=== PATIENT | male | born 1950 | race Caucasian/White ===

== ENCOUNTER 2016-05-01 00:17 | Inpatient (IN) | payer OTHER ==
[~2016-05-01] VITALS: Ht 177.8 cm; Wt 81.1 kg
[2016-05-01] VITALS (8 sets, daily range): BP systolic 140–188; BP diastolic 67–98
[2016-05-01] MEDS ORDERED: FURO20 PO (00:39)
[2016-05-01] MEDS ORDERED: HYDR50 PO (00:39)
[2016-05-01] MEDS ORDERED: GLIP2.5ER PO (00:39)
[2016-05-01] MEDS ORDERED: LISI-662 PO (00:39)
[2016-05-01] MEDS ORDERED: TERA5 PO (00:39)
[2016-05-01] MEDS ORDERED: NIFE90TA38 PO (00:39)
[2016-05-01] MEDS ORDERED: CARV6 PO (00:39)
[2016-05-01 00:42] LABS: GLUCOSE COMMENT 1 Doctor Notified; GLUCOSE,POINT OF CARE 351 MG/DL (70-110)
[2016-05-01 01:32] LABS: BASOPHILS # (AUTO) 0.01 K/uL (0.00-0.20); BASOPHILS % (AUTO) 0.2 % (0.0-2.0); EOSINOPHILS # (AUTO) 0.03 K/uL (0.00-0.70); EOSINOPHILS % (AUTO) 0.37 % (1.0-6.0); HEMATOCRIT 37.3 % (41-53); HEMOGLOBIN 12.5 g/dL (13.5-17.5); LYMPHOCYTES # (AUTO) 0.9 K/uL (1.0-4.8); LYMPHOCYTES % (AUTO) 11.7 % (22.0-44.0); MEAN CORPUSCULAR HEMOGLOBIN 29.8 pg (26.0-34.0); MEAN CORPUSCULAR HGB CONC 33.6 G/dL (31.0-37.0); MEAN CORPUSCULAR VOLUME 89 fL (80-100); MONOCYTES # (AUTO) 0.2 K/uL (0.1-1.0); MONOCYTES % (AUTO) 3.2 % (2.0-9.0); NEUTROPHILS # (AUTO) 6.2 K/uL (1.8-7.7); NEUTROPHILS % (AUTO) 84.6 % (40.0-70.0); PLATELET COUNT (AUTO) 158 K/uL (150-450); RED CELL DISTRIBUTION WIDTH 13.4 % (11.5-14.5); WHITE BLOOD COUNT (AUTO) 7.3 K/uL (4.5-11.0)
[2016-05-01 01:41] LABS: INR 1.2 (0.9-1.1); PROTHROMBIN TIME 13.1 SEC (9.4-11.6)
[2016-05-01 01:46] LABS: ANION GAP 10 mmol/L (8-16); CALCIUM, TOTAL 9.1 mg/dL (8.8-10.5); CARBON DIOXIDE 25 mmol/L (22-29); CHLORIDE 108 mmol/L (98-107); CREATININE 2.41 mg/dL (0.60-1.30); GLOMERULAR FILTR. RATE CALC 27 mL/min (>60); POTASSIUM 4.7 mmol/L (3.5-5.1); SODIUM SERUM 143 mmol/L (136-145); UREA NITROGEN, BLOOD 42 mg/dL (7-18)
[2016-05-01 01:51] LABS: ALANINE AMINOTRANSFERASE 17 U/L (12-78); ALBUMIN 3.6 g/dL (3.4-5.0); ASPARTATE AMINOTRANSFERASE 10 U/L (15-37); BILIRUBIN,TOTAL 0.4 mg/dL (0.1-1.0); CREATINE KINASE, TOTAL 62 U/L (39-308); TOTAL PROTEIN, SERUM 7.5 g/dL (6.4-8.2)
[2016-05-01 01:53] LABS: B-TYPE NATRIURETIC PEPTIDE 327 pg/mL (0-100)
[2016-05-01] MEDS ORDERED: INSULIN REGULAR, HUMAN 100 UNITS/ML IVP ONE (02:30)
[2016-05-01] MEDS ORDERED: SODIUM CHLORIDE 0.9% 1,000 ML IV ONE ×2 (02:30→04:00)
[2016-05-01] MEDS ORDERED: ONDANSETRON HCL 4 MG/2 ML VIAL IVP ONE (02:30)
[2016-05-01] MEDS ORDERED: 0.9% SODIUM CHLORIDE 10 ML SYRINGE IVP PRN (04:00)
[2016-05-01] MEDS ORDERED: ONDANSETRON HCL 4 MG/2 ML VIAL IVP PRN (04:00)
[2016-05-01] MEDS ORDERED: ACETAMINOPHEN 325 MG TABLET PO PRN ×2 (04:00→11:15)
[2016-05-01] MEDS ORDERED: POTASSIUM CHL 20 MEQ/0.45% NS 1,000 ML IV ONE (04:00)
[2016-05-01 04:03] LABS: APPEARANCE,URINE CLEAR (CLEAR); GLUCOSE, URINE (UA) >=1000 mg/dL (NEGATIVE); KETONES,URINE NEGATIVE (NEGATIVE); LEUKOCYTE ESTERASE ,URINE NEGATIVE (NEGATIVE); OCCULT BLOOD,URINE NEGATIVE (NEGATIVE); PH,URINE 5.5 (5.0-8.0); PROTEIN,URINE SEE CONFIRM (NEGATIVE)
[2016-05-01 04:08] LABS: ADD UA MICROSCOPIC YES
[2016-05-01 04:16] LABS: GLUCOSE,POINT OF CARE 266 MG/DL (70-110)
[2016-05-01 04:24] LABS: RBC,URINE None Seen /HPF (0-2); WBC,URINE None Seen /HPF (0-5)
[2016-05-01] MEDS ORDERED: AmLODIPine BESYLATE 5 MG TABLET PO ONE (04:30)
[2016-05-01] MEDS ORDERED: CloNIDine HCL 0.1 MG TABLET PO PRN (05:30)
[2016-05-01 06:27] LABS: GLUCOSE COMMENT 1 Received Meds; GLUCOSE,POINT OF CARE 242 MG/DL (70-110)
[2016-05-01] MEDS: HydrALAZINE HCL 50 MG TABLET PO SCH ×2 (06:35→16:00)
[2016-05-01] MEDS: CARVEDILOL 6.25 MG TABLET PO SCH ×2 (09:07→21:07)
[2016-05-01] MEDS ORDERED: BISACODYL 10 MG RECTAL RECTAL SUPPOSITORY PR PRN (11:15)
[2016-05-01] MEDS ORDERED: DEXTROSE 50%-WATER 25 GM/50 ML SYRINGE IVP PRN (11:15)
[2016-05-01] MEDS: INSULIN ASPART 100 UNITS/ML SQ PRN ×2 (11:58→21:09)
[2016-05-01] MEDS ORDERED: NIFEdipine 90 MG ER TABLET PO SCH (12:00)
[2016-05-01 12:17] LABS: GLUCOSE COMMENT 1 Received Meds; GLUCOSE,POINT OF CARE 261 MG/DL (70-110)
[2016-05-01 17:42] LABS: GLUCOSE COMMENT 1 Received Meds; GLUCOSE,POINT OF CARE 214 MG/DL (70-110)
[2016-05-01] MEDS: SODIUM CHLORIDE 0.9% 1,000 ML IV SCH (19:40)
[2016-05-01] MEDS: DOCUSATE SODIUM 100 MG CAPSULE PO SCH (21:07)
[2016-05-01] MEDS: HEPARIN SODIUM,PORCINE 5,000 UNITS/ML VIAL SQ SCH (21:08)
[2016-05-01 23:11] LABS: GLUCOSE,POINT OF CARE 215 MG/DL (70-110)
[2016-05-02] MEDS: HydrALAZINE HCL 50 MG TABLET PO SCH ×2 (01:23→08:45)
[2016-05-02 05:06] VITALS: BP 131/63
[2016-05-02 05:22] LABS: GLUCOSE,POINT OF CARE 249 MG/DL (70-110)
[2016-05-02 06:13] LABS: CALCIUM, TOTAL 8.5 mg/dL (8.8-10.5); CREATININE 2.34 mg/dL (0.60-1.30); POTASSIUM 4.6 mmol/L (3.5-5.1)
[2016-05-02] MEDS: INSULIN ASPART 100 UNITS/ML SQ PRN (06:27)
[2016-05-02 07:29] VITALS: BP 134/60
[2016-05-02] MEDS: SODIUM CHLORIDE 0.9% 1,000 ML IV SCH (08:45)
[2016-05-02] MEDS: DOCUSATE SODIUM 100 MG CAPSULE PO SCH (08:45)
[2016-05-02] MEDS: HEPARIN SODIUM,PORCINE 5,000 UNITS/ML VIAL SQ SCH (08:45)
[2016-05-02] MEDS: CARVEDILOL 6.25 MG TABLET PO SCH (08:45)
[2016-05-02] MEDS ORDERED: PANTOPRAZOLE SODIUM 40 MG DR TABLET PO SCH (09:00)
[2016-05-02] MEDS ORDERED: FOLI0.8T2 PO (10:56)
[2016-05-02] MEDS ORDERED: HYDR50 PO (10:56)
== END 2016-05-02 11:00 | disposition home or self-care (01) | DRG 468 ==
LOC: EMS 00:19 → 6N 03:45 → EDBD 03:45
PROVIDERS: ADMIT Internal Medicine; ATTEND Internal Medicine
DX: I12.9 Hypertensive chronic kidney disease with stage 1 through stage 4 chronic kidney disease, or unspecified chronic kidney disease (principal); N17.9 Acute kidney failure, unspecified; E11.22 Type 2 diabetes mellitus with diabetic chronic kidney disease; N13.30 Unspecified hydronephrosis; R10.9 Unspecified abdominal pain; E78.00 Pure hypercholesterolemia, unspecified; E86.0 Dehydration; H54.0 Blindness, both eyes; N18.4 Chronic kidney disease, stage 4 (severe); N40.0 Benign prostatic hyperplasia without lower urinary tract symptoms; Z87.891 Personal history of nicotine dependence; Z79.899 Other long term (current) drug therapy; Z79.84 Long term (current) use of oral hypoglycemic drugs
CPT/HCPCS: 74176; 82962; 93005; 96360; 96361; 96374; 96375; 99285; J1644; J1815; J2405; J3480; J7030